=== PATIENT | male | born 1945 | race Caucasian/White ===

== ENCOUNTER 2019-11-11 11:18 | Emergency (ER) | payer OTHER ==
--- NOTE | 2019-11-11 11:42 | ER ---
Nurse's Notes [facility] Name: Robin Lal Age: 74 yrs Sex: Male : 1945 Arrival Date: 11/11/2019 Time: 11:22 Bed 13 Private MD: Diagnosis: Zoster [herpes zoster] Presentation: 11/11 11:35 Presenting complaint: Patient states: painful rash to L buttock, thigh, scrotum and ss penis x 2-3 days. Transition of care: patient was not received from another setting of care. Onset of symptoms was October 08, 2019. Risk Assessment: Do you want to hurt yourself or someone else? Patient reports no desire to harm self or others. Initial Sepsis Screen: Does the patient meet any 2 criteria? No. Patient's initial sepsis screen is negative. Does the patient have a suspected source of infection? No. Patient's initial sepsis screen is negative. Care prior to arrival: None. 11:35 Method Of Arrival: Ambulatory ss 11:35 Acuity: BERNADETTE 5 ss Historical: - Allergies: 11:38 No Known Allergies; ss - Immunization history:: Adult Immunizations up to date. - Coronavirus screen:: The patient has NOT traveled to [place], [place], or [place] in the past 14 days. Proceed with normal triage process as indicated. - Social history:: Smoking status: Patient denies any tobacco usage or history of. - Ebola Screening: : Patient denies exposure to infectious person Patient denies travel to an Ebola-affected area in the 21 days before illness onset. Screenin:30 Abuse screen: Denies threats or abuse. Denies injuries from another. Nutritional ss screening: No deficits noted. Tuberculosis screening: Never had TB. Fall Risk None identified. Assessment: 11:30 General: Behavior is calm, cooperative, Denies fever, feeling ill, fatigue, chills. ss Pain: Complains of pain in left hamstring, Quality of pain is described as burning. Neuro: Level of Consciousness is awake, alert, obeys commands, Oriented to person, place, time, situation. Respiratory: Airway is patent Respiratory effort is even, unlabored, Respiratory pattern is regular, symmetrical. GI: Patient currently denies diarrhea, nausea, vomiting. GI: Abdomen is non-distended. Derm: Skin is intact, is healthy with good turgor, Skin is dry, Skin is pink, warm \T\ dry. normal. Derm: Rash noted that is vesicular, on left hamstring. Vital Signs: 11:38 BP 151 / 98; Pulse 88; Resp 16; Temp 98.4(TE); Pulse Ox 98% on R/A; ss ED Course: 11:22 Patient arrived in ED. as 11:24 [facility] Goodman [facility]C [facility]. kb 11:24 Eitan Erickson MD is Attending Physician. kb 11:30 Patient has correct armband on for positive identification. Bed in low position. Call ss light in reach. 11:37 Triage completed. ss 11:38 Arm band placed on right wrist. ss 11:57 Virgen Fang, RN is Primary Nurse. rb1 12:05 No provider procedures requiring assistance completed. Patient did not have IV access ss during this emergency room visit. Administered Medications: No medications were administered Outcome: 11:42 Discharge ordered by . kb 12:05 Discharged to home ambulatory, with significant other. ss 12:05 Condition: good 12:05 Discharge instructions given to patient, family, Instructed on discharge instructions, follow up and referral plans. medication usage, Demonstrated understanding of instructions, follow-up care, medications, Prescriptions given X 2. 12:17 Patient left the ED. rb1 Signatures: Preethi Goodman FNP-C FNP-Ckb Martinez, Amelia as Smirch, Shelby, RN RN Virgen Fang, RN RN rb1
--- NOTE | 2019-11-11 11:42 | EDPHYS ---
Physician Documentation [facility] Name: Robin Lal Age: 74 yrs Sex: Male : 1945 Arrival Date: 11/11/2019 Time: 11:22 Bed 13 Private MD: ED Physician Eitan Erickson HPI: 11/11 11:41 This 74 yrs old Male presents to ER via Ambulatory with complaints of Rash. kb 11:41 The patient's rash thought to be caused by an unknown cause. The rash is located on the kb groin and posterior aspect of left knee and left hamstring. The rash can be described as vesicular. Onset: The symptoms/episode began/occurred 2 day(s) ago. Associated signs and symptoms: Pertinent positives: Pain. Severity of symptoms: At their worst the symptoms were moderate in the emergency department the symptoms are unchanged. Treatment given at home: Benadryl. The patient has not experienced similar symptoms in the past. The patient has not recently seen a physician. 11:42 Pt reports soreness/achiness to left leg Tuesday and , then broke out to a kb rash on Tuesday. Historical: - Allergies: 11:38 No Known Allergies; ss - Immunization history:: Adult Immunizations up to date. - Coronavirus screen:: The patient has NOT traveled to [place], [place], or [place] in the past 14 days. Proceed with normal triage process as indicated. - Social history:: Smoking status: Patient denies any tobacco usage or history of. - Ebola Screening: : Patient denies exposure to infectious person Patient denies travel to an Ebola-affected area in the 21 days before illness onset. ROS: 11:40 Constitutional: Negative for fever, chills, and weight loss, ENT: Negative for injury, kb pain, and discharge, Neck: Negative for injury, pain, and swelling, Cardiovascular: Negative for chest pain, palpitations, and edema, Respiratory: Negative for shortness of breath, cough, wheezing, and pleuritic chest pain, Abdomen/GI: Negative for abdominal pain, nausea, vomiting, diarrhea, and constipation, Back: Negative for injury and pain, MS/Extremity: Negative for injury and deformity, Neuro: Negative for headache, weakness, numbness, tingling, and seizure. 11:40 Skin: Positive for rash, of the groin, left hamstring and posterior aspect of left knee. Exam: 11:40 Constitutional: This is a well developed, well nourished patient who is awake, alert, kb and in no acute distress. Head/Face: Normocephalic, atraumatic. Neck: Trachea midline, no thyromegaly or masses palpated, and no cervical lymphadenopathy. Supple, full range of motion without nuchal rigidity, or vertebral point tenderness. No Meningismus. Chest/axilla: Normal chest wall appearance and motion. Nontender with no deformity. No lesions are appreciated. Cardiovascular: Regular rate and rhythm with a normal S1 and S2. No gallops, murmurs, or rubs. Normal PMI, no JVD. No pulse deficits. Respiratory: Lungs have equal breath sounds bilaterally, clear to auscultation and percussion. No rales, rhonchi or wheezes noted. No increased work of breathing, no retractions or nasal flaring. Abdomen/GI: Soft, non-tender, with normal bowel sounds. No distension or tympany. No guarding or rebound. No evidence of tenderness throughout. MS/ Extremity: Pulses equal, no cyanosis. Neurovascular intact. Full, normal range of motion. Neuro: Awake and alert, GCS 15, oriented to person, place, time, and situation. Cranial nerves II-XII grossly intact. Motor strength 5/5 in all extremities. Sensory grossly intact. Cerebellar exam normal. Normal gait. 11:40 Skin: rash a moderate rash is noted, consistent with zoster, on the groin and posterior aspect of left knee and left hamstring. Vital Signs: 11:38 BP 151 / 98; Pulse 88; Resp 16; Temp 98.4(TE); Pulse Ox 98% on R/A; ss MDM: 11:25 Patient medically screened. kb 11:36 Data reviewed: vital signs, nurses notes. Data interpreted: Pulse oximetry: on room air kb is 100 %. Interpretation: normal. Counseling: I had a detailed discussion with the patient and/or guardian regarding: the historical points, exam findings, and any diagnostic results supporting the discharge/admit diagnosis, the need for outpatient follow up, a family practitioner, to return to the emergency department if symptoms worsen or persist or if there are any questions or concerns that arise at home. Administered Medications: No medications were administered Disposition: 17:38 Co-signature as Attending Physician, Eitan Erickson MD. rn Disposition: 11/11/19 11:42 Discharged to Home. Impression: Zoster [herpes zoster]. - Condition is Stable. - Discharge Instructions: Shingles. - Prescriptions for Tylenol- Codeine #3 300-30 mg Oral Tablet - take 2 tablets by ORAL route every 6 hours As needed; 16 tablet. Valtrex 1 g Oral Tablet - take 1 tablet by ORAL route every 8 hours for 7 days; 21 tablet. - Medication Reconciliation Form, Thank You Letter, Antibiotic Education, Prescription Opioid Use form. - Follow up: Emergency Department; When: As needed; Reason: Worsening of condition. Follow up: Private Physician; When: 2 - 3 days; Reason: Recheck today's complaints, Continuance of care, Re-evaluation by your physician. Signatures: Preethi Goodman, AN/SYQ 13 NAV/C2 OPERATOR-C AN/SYQ 13 NAV/C2 OPERATOR-Yosehpb Eitan Erickson MD MD rn Kimmy Mills RN RN ss Virgen Fang RN RN rb1 Corrections: (The following items were deleted from the chart) 12:17 11:42 11/11/2019 11:42 Discharged to Home. Impression: Zoster [herpes zoster]. rb1 Condition is Stable. Forms are Medication Reconciliation Form, Thank You Letter, Antibiotic Education, Prescription Opioid Use. Follow up: Emergency Department; When: As needed; Reason: Worsening of condition. Follow up: Private Physician; When: 2 - 3 days; Reason: Recheck today's complaints, Continuance of care, Re-evaluation by your physician. kb
[2019-11-11 12:30] VITALS: BP 151/98; TEMP 98.4; O2SAT 98
== END 2019-11-11 12:17 | disposition home or self-care (01) ==
LOC: ER 11:18
DX: B02.9 Zoster without complications (principal)
CPT/HCPCS: 99282